=== PATIENT | male | born 1960 | race Two or more races ===

== ENCOUNTER 2022-05-31 07:15 | Outpatient (CLI) | payer OTHER | END 2022-05-31 07:29 | disposition home or self-care (01) | LOC: SONOGRAMA 07:15 | PROVIDERS: ATTEND Urology | DX: D29.1 Benign neoplasm of prostate (principal); N41.1 Chronic prostatitis; R97.20 Elevated prostate specific antigen [PSA] ==

== ENCOUNTER 2022-10-20 07:11 | Inpatient (IN) | payer OTHER ==
[~2022-10-20] VITALS: Ht 170.2 cm; Wt 69.9 kg
[~2022-10-20 07:11] MED LIST: FINASTERIDE5 MG PO; LANTUS; LOSARTAN-HCTZ1 EAC1 PO; TOPROL XL50 M1 PO; XIGDUO XR 5 MG1 EAC1 PO
== END 2022-10-21 12:32 | disposition home or self-care (01) | DRG 714 ==
LOC: CIR.AMB 07:11 → SURH 15:45
PROVIDERS: ADMIT Urology; ATTEND Urology
PROC: 0VTTXZZ Resection of Prepuce, External Approach (ICD-10-PCS; 2022-10-20)
PROC: 0VT08ZZ Resection of Prostate, Via Natural or Artificial Opening Endoscopic (ICD-10-PCS; principal; 2022-10-20 07:00)
DX: N40.1 Benign prostatic hyperplasia with lower urinary tract symptoms (principal); Z20.822 Contact with and (suspected) exposure to COVID-19; N47.1 Phimosis